=== PATIENT | female | born 1955 | race African-American/Black ===

== ENCOUNTER 2021-04-09 13:32 | Inpatient (IN) ==
[2021-04-09] MEDS ORDERED: PIPERACILLIN/TAZOBACTAM 3,375 MG in SODIUM CHLORIDE 0.9% 100 ML IV STA (13:58)
[2021-04-09 14:30] LABS: Basophils # 0.1 10*3/uL (0.0-0.2); Basophils % 0.3 % (0.0-0.8); Hematocrit 40.9 VOL% (35.7-47.0); Hemoglobin 12.9 GM/DL (12.0-16.0); Immature Granulocytes % 1.4 %; Immature Granulocytes Absolute 0.33 #; Lymphocytes # 1.4 10*3/uL (1.4-4.0); Lymphocytes % 6.1 % (21.3-54.2); Mean Corpuscular HGB Conc 31.5 GM/DL (32-36); Monocytes % 2.9 % (1.7-12.7); Neutrophils % 89.3 % (38.7-73.9); Platelet Count 151 T/CUMM (130-400); Red Blood Count 4.93 MC/CUMM (3.8-5.5); Red Cell Distribution Width 15.3 % (9.3-17.3); White Blood Count 23.1 T/CUMM (4-12)
[2021-04-09 15:03] LABS: Blood Urea Nitrogen 27 MG/DL (7-18); Calcium 9.2 MG/DL (8.5-10.1); Carbon Dioxide 26 MMOL/L (21-32); Estimated Glom Filtration Rate 43 ML/MIN; Glucose 205 MG/DL (74-106); Potassium 3.6 MMOL/L (3.5-5.1); Sodium 136 MMOL/L (136-145)
[2021-04-09] MEDS ORDERED: ACETAMINOPHEN 500 MG TABLET ONE (15:24)
[2021-04-09] MEDS ORDERED: DEXTROSE 50% 25 GM/50 ML VIAL IV PRN (15:52)
[2021-04-09] MEDS ORDERED: ALBUTEROL/IPRATROPIUM 3 ML NEB RESP TX PRN (15:52)
[2021-04-09] MEDS ORDERED: GLUCAGON 1 MG VIAL IM PRN (15:52)
[2021-04-09] MEDS ORDERED: ONDANSETRON 4 MG/2 ML VIAL IV PRN (15:53)
[2021-04-09] MEDS ORDERED: ACETAMINOPHEN 325 MG TABLET PO PRN (15:54)
[2021-04-09] MEDS ORDERED: DOCUSATE SODIUM 100 MG CAPSULE PO PRN (15:54)
[2021-04-09] MEDS ORDERED: MAGNESIUM HYDROXIDE SUSP 30 ML UDCUP PO PRN (15:54)
[2021-04-09] MEDS ORDERED: ALUMINUM/MAGNES/SIMETH MAX STR 30 ML UDCUP PO PRN (15:54)
[2021-04-09] MEDS ORDERED: PIPERACILLIN/TAZOBACTAM 3,375 MG in SODIUM CHLORIDE 0.9% 100 ML IV SCH (16:00)
[2021-04-09] MEDS ORDERED: SODIUM CHLORIDE 0.9% 500 ML IV STA (16:05)
[2021-04-09 16:06] LABS: Albumin 3.2 G/DL (3.4-5.0); Bilirubin,Direct 0.3 MG/DL (0.0-0.20); Bilirubin,Indirect 0.5 MG/DL (0.0-1.0); Bilirubin,Total 0.8 MG/DL (0.20-1.00); Total Protein 8.7 G/DL (6.4-8.2)
[2021-04-09] MEDS ORDERED: LACTATED RINGERS 1,500 ML IV ONE (16:37)
[2021-04-09] MEDS: methylPREDNISolone SOD SUC 125 MG/2 ML VIAL IV SCH (17:00)
[2021-04-09 17:05] LABS: % Iron Saturation 5.9 % (18-50); Ferritin 344.9 ng/mL (8-252)
[2021-04-09 17:12] LABS: Folate > 24.00 NG/ML (5.38-24.0); Vitamin B12 478 PG/ML (211-911)
[2021-04-09] MEDS: INSULIN LISPRO 100 UNIT/ML SUBCUT SCH ×2 (20:46→20:53)
[2021-04-09] MEDS: ENOXAPARIN 40 MG/0.4 ML SYRINGE SUBCUT SCH (20:52)
[2021-04-09] MEDS: LACTATED RINGERS 1,000 ML IV SCH (20:52)
[2021-04-09] MEDS: PIPERACILLIN/TAZOBACTAM 3,375 MG in SODIUM CHLORIDE 0.9% 100 ML IV SCH (20:52)
[2021-04-10] MEDS: methylPREDNISolone SOD SUC 125 MG/2 ML VIAL IV SCH ×3 (01:08→17:32)
[2021-04-10] MEDS: PIPERACILLIN/TAZOBACTAM 3,375 MG in SODIUM CHLORIDE 0.9% 100 ML IV SCH ×3 (04:48→20:54)
[2021-04-10] MEDS: LACTATED RINGERS 1,000 ML IV SCH ×3 (04:49→17:32)
[2021-04-10 06:01] LABS: Basophils % 0.2 % (0.0-0.8); Eosinophils % 0.2 % (0.00-10.9); Hematocrit 39.6 VOL% (35.7-47.0); Hemoglobin 12.4 GM/DL (12.0-16.0); Immature Granulocytes % 0.8 %; Immature Granulocytes Absolute 0.18 #; Lymphocytes # 0.9 10*3/uL (1.4-4.0); Lymphocytes % 3.9 % (21.3-54.2); Mean Corpuscular HGB Conc 31.3 GM/DL (32-36); Mean Corpuscular Volume 84.8 FL (87-102); Monocytes % 2.2 % (1.7-12.7); Neutrophils % 92.7 % (38.7-73.9); Platelet Count 183 T/CUMM (130-400); Red Blood Count 4.67 MC/CUMM (3.8-5.5); Red Cell Distribution Width 15.4 % (9.3-17.3); White Blood Count 21.7 T/CUMM (4-12)
[2021-04-10 06:23] LABS: Lymphocytes 2 % (20-55); Platelet Estimate Adequate; Segmented Neutrophils 97 % (50-85); Total Cells Counted 100
[2021-04-10 06:24] LABS: Hypochromasia 1+; Microcytosis 1+
[2021-04-10 06:25] LABS: Calcium 8.7 MG/DL (8.5-10.1); Osmolality,Calculated 284.8 MOS/KG (273-304); Potassium 4.1 MMOL/L (3.5-5.1); Thyroid Stimulating Hormone 0.604 uIU/ml (0.358-3.74)
[2021-04-10] MEDS: INSULIN LISPRO 100 UNIT/ML SUBCUT SCH ×4 (07:52→20:54)
[2021-04-10] MEDS: PANTOPRAZOLE 40 MG TABLET PO SCH (09:12)
[2021-04-10] MEDS: FERROUS SULFATE 325 MG TABLET PO SCH ×2 (09:12→20:54)
[2021-04-10] MEDS: ENOXAPARIN 40 MG/0.4 ML SYRINGE SUBCUT SCH (20:53)
[2021-04-11] MEDS: methylPREDNISolone SOD SUC 125 MG/2 ML VIAL IV SCH (00:40)
[2021-04-11] MEDS: PIPERACILLIN/TAZOBACTAM 3,375 MG in SODIUM CHLORIDE 0.9% 100 ML IV SCH (04:54)
[2021-04-11 05:04] LABS: Basophils % 0.2 % (0.0-0.8); Hematocrit 37.8 VOL% (35.7-47.0); Hemoglobin 12.1 GM/DL (12.0-16.0); Immature Granulocytes % 1.3 %; Immature Granulocytes Absolute 0.26 #; Lymphocytes % 5.2 % (21.3-54.2); Mean Corpuscular Volume 84.6 FL (87-102); Mean Platelet Volume 12.6 FL (9.6-12.0); Monocytes % 3.1 % (1.7-12.7); NRBC # 0.03 10*3/uL; Neutrophils % 90.2 % (38.7-73.9); Platelet Count 164 T/CUMM (130-400); Red Blood Count 4.47 MC/CUMM (3.8-5.5); Red Cell Distribution Width 15.4 % (9.3-17.3); White Blood Count 19.9 T/CUMM (4-12)
[2021-04-11 05:19] LABS: Uric Acid 5.2 MG/DL (2.6-6.0)
[2021-04-11 05:20] LABS: Calcium 8.9 MG/DL (8.5-10.1); Osmolality,Calculated 288.5 MOS/KG (273-304); Potassium 4.3 MMOL/L (3.5-5.1)
[2021-04-11] MEDS: methylPREDNISolone SOD SUC 40 MG/1 ML VIAL IV SCH ×2 (09:42→21:53)
[2021-04-11] MEDS: INSULIN LISPRO 100 UNIT/ML SUBCUT SCH ×4 (09:42→22:47)
[2021-04-11] MEDS: FERROUS SULFATE 325 MG TABLET PO SCH ×2 (09:43→21:52)
[2021-04-11] MEDS: LACTATED RINGERS 1,000 ML IV SCH ×3 (09:43→12:46)
[2021-04-11] MEDS: PANTOPRAZOLE 40 MG TABLET PO SCH (09:43)
[2021-04-11] MEDS: cefTRIAXone 1,000 MG VIAL IM SCH (09:43)
[2021-04-11] MEDS: COLCHICINE 0.6 MG CAPSULE PO SCH ×2 (09:43→21:52)
[2021-04-11] MEDS: ENOXAPARIN 40 MG/0.4 ML SYRINGE SUBCUT SCH (21:53)
[2021-04-12 05:14] LABS: Basophils # 0.1 10*3/uL (0.0-0.2); Basophils % 0.4 % (0.0-0.8); Hematocrit 36.3 VOL% (35.7-47.0); Hemoglobin 11.4 GM/DL (12.0-16.0); Immature Granulocytes % 2.4 %; Immature Granulocytes Absolute 0.39 #; Lymphocytes # 1.4 10*3/uL (1.4-4.0); Lymphocytes % 8.5 % (21.3-54.2); Mean Corpuscular HGB Conc 31.4 GM/DL (32-36); Monocytes % 5.7 % (1.7-12.7); NRBC # 0.03 10*3/uL; Platelet Count 206 T/CUMM (130-400); Red Blood Count 4.27 MC/CUMM (3.8-5.5); Red Cell Distribution Width 15.6 % (9.3-17.3); White Blood Count 16.4 T/CUMM (4-12)
[2021-04-12 05:33] LABS: Osmolality,Calculated 289.3 MOS/KG (273-304); Potassium 4.2 MMOL/L (3.5-5.1)
[2021-04-12] MEDS ORDERED: SODIUM CHLORIDE 0.9% 100 ML IV ONE (08:45)
[2021-04-12] MEDS: methylPREDNISolone SOD SUC 40 MG/1 ML VIAL IV SCH (08:48)
[2021-04-12] MEDS: PANTOPRAZOLE 40 MG TABLET PO SCH (08:48)
[2021-04-12] MEDS: FERROUS SULFATE 325 MG TABLET PO SCH (08:48)
[2021-04-12] MEDS: COLCHICINE 0.6 MG CAPSULE PO SCH (08:48)
[2021-04-12] MEDS: cefTRIAXone 1,000 MG VIAL IM SCH ×2 (08:52→09:54)
[2021-04-12] MEDS: INSULIN LISPRO 100 UNIT/ML SUBCUT SCH ×2 (08:52→12:18)
[2021-04-12] MEDS: LACTATED RINGERS 1,000 ML IV SCH ×2 (08:53→08:54)
[2021-04-12] MEDS ORDERED: cefTRIAXone 1,000 MG in SODIUM CHLORIDE 0.9% 100 ML IV SCH (10:00)
[2021-04-12 12:44] VITALS: BP 114/73
[2021-04-13] MEDS ORDERED: cefTRIAXone 1,000 MG VIAL IV SCH (09:00)
== END 2021-04-12 14:12 | disposition home or self-care (01) | DRG 872 ==
LOC: N.ED 13:32 → N.EDINP 15:45 → N.TELEN 20:40
PROVIDERS: ADMIT Internal Medicine; ATTEND Internal Medicine